=== PATIENT | male | born 1960 | race Caucasian/White ===

== ENCOUNTER 2016-11-02 15:03 | Outpatient (CLI) | payer OTHER ==
[2015-10-25 18:10] VITALS: BP 142/53
--- NOTE | 2016-11-02 18:21 | Diagnostic Imaging Report ---
[facility] [id number] [facility].[address] [id number] Report Submission Date: Nov 02, 2016 3:33:18 PM BICYCLE COURIER Patient Study Name: TERESA MARIE Date: Nov 02, 2016 3:15:44 PM BICYCLE COURIER Modality Type: CR Gender: M Description: CHEST : 62 Institution: [facility] Physician: ASHLYN INFANTE 2 views of the chest History: [place]ICA-CLAUDICATION, [place], [place] findings: No comparison studies Heart is normal in size. There is no focal consolidation, pleural effusion or pneumothorax Mild degenerative changes of the thoracic spine are noted Hilar pulmonary vascular prominence is seen Impression: No focal consolidation or pleural effusion Electronically signed on Nov 02, 2016 3:33:18 PM BICYCLE COURIER by: Felicia BRYANT
== END 2016-11-02 15:05 ==
LOC: RAD 15:03
PROVIDERS: ATTEND Family Medicine
DX: I73.9 Peripheral vascular disease, unspecified (principal)
CPT/HCPCS: 71020

== ENCOUNTER 2017-06-17 08:53 | Outpatient (CLI) | payer OTHER ==
[2015-10-25 18:10] VITALS: BP 142/53
[2017-06-18 07:31] LABS: TOTAL PROTEIN 4.3 g/dL (6.0-8.5)
== END 2017-06-17 08:54 ==
LOC: LAB 08:53
PROVIDERS: ATTEND Family Medicine
DX: E78.2 Mixed hyperlipidemia (principal)
CPT/HCPCS: 36415; 80053; 80061